=== PATIENT | male | born 1950 | race Caucasian/White ===

== ENCOUNTER 2018-10-16 23:31 | Emergency (ER) | payer MEDICARE, OTHER ==
[2018-10-16] MEDS ORDERED: Sodium Chloride 0.9% 10 ML Syringe FLUSH PRN (23:57)
[2018-10-17] MEDS ORDERED: HYDROmorphone 1 MG/ML Syringe IVPUSH ONE (00:10)
--- NOTE | 2018-10-17 00:47 | EDM.PDOC ---
ED HPI GENERAL MEDICAL PROBLEM - General Chief Complaint: Gastrointestinal Problem Time Seen by Provider: 10/16/18 23:31 Source of Information: Reports: Patient History Limitations: Reports: No Limitations - History of Present Illness INITIAL COMMENTS - FREE TEXT/NARRATIVE: Pt. presents to ER with complaints of a a pop bottle stuck in his rectum. Pt. states that he was unable to remove the bottle and states that it has migrated further up his rectum/sigmoid. Pt. states that he is unable to feel it with his fingers. He states that this has happened once before and he went to [place] where they were able to extract the toy. Onset: Today Onset Date: 10/17/18 Location: Reports: Abdomen Rectal Pain Score (Numeric/FACES): 9 - Related Data Allergies Allergy/AdvReac Type Severity Reaction Status Date / Time acetaminophen Allergy Cannot Verified 10/16/18 23:55 [From Tylenol-Codeine] Remember atorvastatin Allergy Cannot Verified 10/16/18 23:55 Remember bee venom protein (honey bee) Allergy Cannot Verified 10/16/18 23:55 Remember clindamycin Allergy Cannot Verified 10/16/18 23:55 Remember codeine Allergy Cannot Verified 10/16/18 23:55 [From Tylenol-Codeine] Remember egg Allergy Cannot Verified 10/16/18 23:55 Remember Influenza Virus Vaccines Allergy Cannot Verified 10/16/18 23:55 Remember lisinopril Allergy Cannot Verified 10/16/18 23:55 Remember metformin Allergy Cannot Verified 10/16/18 23:55 Remember Penicillins Allergy Cannot Verified 10/16/18 23:55 Remember Sulfa (Sulfonamide Allergy Cannot Verified 10/16/18 23:55 Antibiotics) Remember tetracycline Allergy Cannot Verified 10/16/18 23:55 Remember Home Meds: Home Meds . 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 - Past Surgical History Musculoskeletal Surgical History: Reports: Other (See Below) Other Musculoskeletal Surgeries/Procedures:: left foot surgery Social & Family History - Tobacco Use Smoking Status *Q: Unknown Ever Smoked ED ROS GENERAL - Review of Systems Review Of Systems: See Below Constitutional: Reports: No Symptoms HEENT: Reports: No Symptoms Respiratory: Reports: No Symptoms Cardiovascular: Reports: No Symptoms Endocrine: Reports: No Symptoms GI/Abdominal: Reports: Abdominal Pain, Other (see HPI) : Reports: Incontinence Musculoskeletal: Reports: No Symptoms Skin: Reports: No Symptoms Neurological: Reports: No Symptoms Psychiatric: Reports: Depression Hematologic/Lymphatic: Reports: No Symptoms Immunologic: Reports: No Symptoms ED EXAM, GENERAL - Physical Exam Exam: See Below General Appearance: Alert, WD/WN, No Apparent Distress GI/Abdominal: Normal Bowel Sounds, Soft, No Organomegaly, Tender Rectal (Males) Exam: Decreased Rectal Tone, Other (See HPI) Skin Exam: Warm, Dry, Intact, Normal Color, No Rash ED GENERAL MEDICAL PROCEDURES - Additional/Other Procedure(s) Other (Free Text) Procedure(s): Bottle had migrated farther up the rectum. The bottle was inserted with the upside down with the mouth downward. Attempted to pull bottle down but again it had migrated upward. Attempted to use a leyva catheter to inflate the bowel to help with removal. The patient's rectal tone was very poor and I was unable to achieve decompression. Course - Vital Signs Last Recorded V/S: Last Vital Signs Temp 36.8 C 10/17/18 00:12 Pulse 118 H 10/17/18 00:12 Resp 22 H 10/17/18 00:12 BP 153/68 H 10/17/18 00:12 Pulse Ox 97 10/17/18 00:12 - Orders/Labs/Meds Orders: Active Orders 24 hr Category Date Time Status Abdomen 1V Flat [CR] Stat Exams 10/16/18 23:58 Taken Sodium Chloride 0.9% [Saline Flush] Med 10/16/18 23:57 Active 10 ml FLUSH ASDIRECTED PRN Peripheral IV Insertion Adult [OM.PC] Routine Oth 10/16/18 23:57 Ordered Medication Orders Sodium Chloride (Saline Flush) 10 ml FLUSH ASDIRECTED PRN PRN Reason: Keep Vein Open Meds: Medications Generic Name Dose Route Start Last Admin Trade Name Freq PRN Reason Stop Dose Admin Sodium Chloride 10 ml 10/16/18 23:57 Saline Flush FLUSH ASDIRECTED PRN Keep Vein Open Discontinued Medications Generic Name Dose Route Start Last Admin Trade Name Freq PRN Reason Stop Dose Admin Hydromorphone HCl 0.5 mg 10/17/18 00:10 10/17/18 00:19 Dilaudid IVPUSH 10/17/18 00:11 0.5 mg ONETIME ONE Administration Departure - Departure Time of Disposition: 01:06 Disposition: DC/Tfer to Acute Hospital 02 Clinical Impression: Foreign body anus/rectum - Discharge Information Referrals: PCP,Unobtain [Primary Care Provider] - Forms: ED Department Discharge, Interfacility Transfer EMTALA - Problem List Review Problem List Initiated/Reviewed/Updated: Yes - My Orders Last 24 Hours: My Active Orders 10/16/18 23:57 Sodium Chloride 0.9% [Saline Flush] 10 ml FLUSH ASDIRECTED PRN Peripheral IV Insertion Adult [OM.PC] Routine 10/16/18 23:58 Abdomen 1V Flat [CR] Stat - Assessment/Plan Last 24 Hours: My Active Orders 10/16/18 23:57 Sodium Chloride 0.9% [Saline Flush] 10 ml FLUSH ASDIRECTED PRN Peripheral IV Insertion Adult [OM.PC] Routine 10/16/18 23:58 Abdomen 1V Flat [CR] Stat Plan: Spoke with Dr. Kim who accepts patient in transfer. Will be transported via [facility]. He can have dilaudid for further pain control. All questions were answered.
--- NOTE | 2018-10-17 12:26 | CR ---
[id number] RAD/RAD Abdomen Flat Plate 1V Exam: RAD Abdomen Flat Plate 1V Indication:FOREIGN BODY RECTUM. Comparison: None. Discussion: 16.9 x 8.7 cm foreign body projecting over the pelvis, consistent with history of possible foreign body in rectum. Bowel gas pattern is unobstructed. No radiographically evident pneumoperitoneum. Impression: As above. Diego Matta MD 10/17/18 [id number] Thank you for allowing us to participate in the care of your patient.
== END 2018-10-17 01:10 | disposition short-term general hospital (02) ==
LOC: VM.ED 23:31
DX: T18.5XXA Foreign body in anus and rectum, initial encounter (principal); E11.9 Type 2 diabetes mellitus without complications; Z88.8 Allergy status to other drugs, medicaments and biological substances; Z91.030 Bee allergy status; Z88.1 Allergy status to other antibiotic agents; X58.XXXA Exposure to other specified factors, initial encounter
CPT/HCPCS: 74018; 96374; 99285; J1170

== ENCOUNTER 2019-04-07 07:45 | Day surgery (SDC) | payer MEDICARE, OTHER, BC ==
[~2019-04-07 07:45] MED LIST: Lactated Ringers 1,000 ML IV SCH
[2019-04-07] MEDS ORDERED: Propofol 200 MG/20 ML SDV ONE ×2 (09:20→12:17)
[2019-04-07] MEDS ORDERED: fentaNYL 100 MCG/2 ML SDV ONE (09:20)
--- NOTE | 2019-04-07 12:40 | OR ---
DATE OF SURGERY: 04/07/2019. REFERRING PROVIDER: ALPHONSE Webb PREOPERATIVE DIAGNOSIS: History of left sigmoid colon resection secondary to foreign body. The patient has a left colostomy in place and is planning reversal in late September. Previous surgery was 10/17/2018. The patient's last colonoscopy was noted in 2007. POSTOPERATIVE DIAGNOSES: 1. Impacted rectal stump with firm amorphous material. Some of this was able to be manually disimpacted, but the more proximal material was not. Mild irritation of the rectal stump mucosa was noted. 2. Tortuous redundant colon, especially the transverse colon. I was only able to advance to the hepatic flexure. I did briefly get a view of the right colon and did not see anything obvious, but unable to advance the scope past the hepatic flexure despite scope maneuvering and patient position changes. 3. A 1 cm polyp at 70 cm from the stoma (near hepatic flexure) was removed with 2 passes of hot snare. 4. Mild left-sided diverticulosis. PROCEDURE: Colonoscopy with polypectomy x1 using hot snare (colonoscopy done in 2 parts, 1st the rectal stump, and then through his stoma in the left abdomen). SURGEON: Prabhakar Goldstein M.D. ANESTHESIA: Monitored anesthesia care. BOWEL PREP: Fair. DESCRIPTION OF PROCEDURE: Pasquale is a 68-year-old male who was brought to the endoscopy suite after discussing risks and benefits of the procedure. Informed consent was obtained for conscious sedation and colonoscopy with or without biopsy and/or polypectomy. We also discussed possibility of missed lesions. Pre-procedure exam was unremarkable. IV, oxygen, and monitors were placed. The patient was placed in the left lateral decubitus position. Sedation was administered and a digital rectal exam was performed and was remarkable for firm, impacted, amorphous-type material. Some of this was able to be removed digitally, although there still was more material proximally. I was unable to visualize much with the scope, but there was some mild irritation to the rectal stump mucosa. We then turned the patient onto his back and accessed the remainder of the colon through the left abdominal stoma. Colonoscope was passed into the stoma and advanced to the hepatic flexure. The patient had very tortuous redundant colon, and I was only able to advance the scope to this area. I did briefly, for a moment, see the right colon mucosa without any obvious masses or inflammation, but was unable to advance the scope despite multiple scope maneuvers and patient re-positioning. Abdominal pressure was also unsuccessful. At this point, near the hepatic flexure, there was noted to be a sessile polyp measuring about 1 cm in size. This was removed using 2 passes of hot snare. The colonoscope was slowly withdrawn and the mucosa was closed observed in a direct circumferential manner. The transverse colon was unremarkable. The descending colon was remarkable for some mild diverticulosis. Scope was removed. The patient tolerated the procedure well. The patient was monitored until at baseline status. Discharge instructions were reviewed and the patient was discharged in good condition. COMPLICATIONS: None. TOTAL TIME: 40 minutes. ESTIMATED BLOOD LOSS: Less than 1 mL. RECOMMENDATIONS/FOLLOWUP: We will await results of path report to determine ideal followup interval. Would recommend GI or Surgery to try to visualize the right colon in the near future, possibly intraoperatively. The impacted rectal stump would also require better visualization, possibly after irrigation. I would like to kindly thank Akil Hernandez for this referral. DMB: 04/07/2019 11:38:37 MODL: 04/07/2019 12:31:28 /[id number] ROBYN
== END 2019-04-07 12:25 | disposition home or self-care (01) ==
LOC: VM.SDS 07:45
PROVIDERS: ATTEND Family Medicine
DX: Z01.818 Encounter for other preprocedural examination (principal); D12.4 Benign neoplasm of descending colon; Q43.8 Other specified congenital malformations of intestine; K57.30 Diverticulosis of large intestine without perforation or abscess without bleeding; K62.89 Other specified diseases of anus and rectum; E11.42 Type 2 diabetes mellitus with diabetic polyneuropathy; I10 Essential (primary) hypertension; E78.5 Hyperlipidemia, unspecified; K21.9 Gastro-esophageal reflux disease without esophagitis; F33.42 Major depressive disorder, recurrent, in full remission; G40.909 Epilepsy, unspecified, not intractable, without status epilepticus; F20.9 Schizophrenia, unspecified; J45.909 Unspecified asthma, uncomplicated; Z93.3 Colostomy status; Z87.891 Personal history of nicotine dependence; Z91.012 Allergy to eggs; Z91.030 Bee allergy status; Z88.0 Allergy status to penicillin; Z88.1 Allergy status to other antibiotic agents; Z88.2 Allergy status to sulfonamides; Z88.5 Allergy status to narcotic agent; Z88.6 Allergy status to analgesic agent; Z88.7 Allergy status to serum and vaccine; Z88.8 Allergy status to other drugs, medicaments and biological substances; Z79.4 Long term (current) use of insulin; Z79.899 Other long term (current) drug therapy
CPT/HCPCS: 00811; 44394; 45330; 82962; J2704; J3010; J7120; 88305

== ENCOUNTER 2020-02-28 10:19 | Emergency (ER) | payer OTHER, MEDICARE, BC ==
[2020-02-28] MEDS ORDERED: Sodium Chloride 0.9% 10 ML Syringe FLUSH PRN (11:05)
--- NOTE | 2020-02-28 12:25 | EDM.PDOC ---
ED HPI GENERAL MEDICAL PROBLEM - General Stated Complaint: ER Time Seen by Provider: 02/28/20 10:19 Source of Information: Reports: Patient History Limitations: Reports: No Limitations - History of Present Illness INITIAL COMMENTS - FREE TEXT/NARRATIVE: Pt. presents to ER with numerous complaints. They include intermittent chest pain, lightheadedness, shortness of breath, productive cough, chills and sweats. He states that he has been experiencing the chest pain intermittently for weeks to months. He states that the discomfort does not radiate into his jaw, arms, neck or back. He denies any history of CAD. He states that he has had a stress test, but it has been "years". Pt. states that he is very fatigued. He states that he has to take naps during the day. He has never been worked up for the chest pain. He is insulin dependent type 2 DM. No nausea, vomiting, or diarrhea. Pt. states that he has not been travelling. No ill contacts that he is aware of. Onset Date: 02/28/20 Location: Reports: Chest, Generalized - Related Data Allergies Allergy/AdvReac Type Severity Reaction Status Date / Time acetaminophen Allergy Cannot Verified 02/28/20 13:02 [From Tylenol-Codeine] Remember atorvastatin Allergy Cannot Verified 02/28/20 13:02 Remember bee venom protein (honey bee) Allergy Cannot Verified 02/28/20 13:02 Remember clindamycin Allergy Cannot Verified 02/28/20 13:02 Remember codeine Allergy Cannot Verified 02/28/20 13:02 [From Tylenol-Codeine] Remember lisinopril Allergy Cannot Verified 02/28/20 13:02 Remember metformin Allergy Cannot Verified 02/28/20 13:02 Remember nicotine [From Nicoderm CQ] Allergy Itching Verified 02/28/20 13:02 Penicillins Allergy Cannot Verified 02/28/20 13:02 Remember Sulfa (Sulfonamide Allergy Cannot Verified 02/28/20 13:02 Antibiotics) Remember tetracycline Allergy Cannot Verified 02/28/20 13:02 Remember Home Meds: Home Meds Divalproex Sodium [Depakote ER] 500 mg PO BID 10/17/18 [History] Gabapentin [Neurontin] 800 mg PO BID 10/17/18 [History] Ibuprofen 2 tab PO Q4H PRN 10/17/18 [History] Nitroglycerin [Nitrostat] 0.4 mg SL ASDIRECTED PRN 10/17/18 [History] Omeprazole Magnesium [Prilosec Otc] 40 mg PO DAILY 10/17/18 [History] Simvastatin 40 mg PO BEDTIME 10/17/18 [History] buPROPion [Wellbutrin SR] 300 mg PO DAILY 10/17/18 [History] glipiZIDE [Glucotrol] 10 mg PO BID 10/17/18 [History] raNITIdine HCl [Zantac] 150 mg PO DAILY 10/17/18 [History] Cholecalciferol (Vitamin D3) [Vitamin D3] 1,000 unit PO BID 04/04/19 [History] Desonide [Desowen] 1 applic TP BEDTIME 04/04/19 [History] Docusate Sodium 100 mg PO BID 04/04/19 [History] EPINEPHrine [Auvi-Q] 0.3 mg IJ DAILY PRN 04/04/19 [History] Fluoride (Sodium) [Prevident 5000] 100 ml DT DAILY PRN 04/04/19 [History] Insuln Asp Prot/Insulin Aspart [NovoLOG Mix 70-30] 52 units SQ BID 04/04/19 [History] Melatonin/Pyridoxine HCl (B6) [Melatonin 3 mg Tablet] 1 tab PO BEDTIME PRN 04/04/19 [History] Coburn-3/DHA/Epa/Fish Oil [Coburn 3 500 Softgel] 1,000 mg PO BID 04/04/19 [History] bisacodyL [Dulcolax] 5 mg PO DAILY PRN 04/04/19 [History] carvediloL [Carvedilol] 25 mg PO BID 04/04/19 [History] tiZANidine [Zanaflex] 4 mg PO BID 02/28/20 [History] Past Medical History HEENT History: Reports: Impaired Vision, Other (See Below) Other HEENT History: myopia, presbyopia Respiratory History: Reports: Sleep Apnea, SOB Gastrointestinal History: Reports: GERD, Other (See Below) Other Gastrointestinal History: rectal foreign body Genitourinary History: Reports: Renal Calculus, Other (See Below) Other Genitourinary History: orchitis, epididymitis, retracticle testis Musculoskeletal History: Reports: Back Pain, Chronic, Neck Pain, Chronic Neurological History: Reports: Neuropathy, Diabetic, Seizure Psychiatric History: Reports: Depression, Schizophrenia, Other (See Below) Other Psychiatric History: personal hx of mental disorder, personal hx of tobacco Endocrine/Metabolic History: Reports: Diabetes, Type II, Other (See Below) Other Endocrine/Metabolic History: neuropathy Oncologic (Cancer) History: Reports: Other (See Below) Other Oncologic History: 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, skin of face Dermatologic History: Reports: Seborrheic Dermatitis - Past Surgical History HEENT Surgical History: Reports: Oral Surgery GI Surgical History: Reports: Colonoscopy, Other (See Below) Other GI Surgeries/Procedures: laporotomy rectal exam with foreign body extraction, signoid colon resection Endocrine Surgical History: Reports: None Neurological Surgical History: Reports: None Musculoskeletal Surgical History: Reports: Other (See Below) Other Musculoskeletal Surgeries/Procedures:: left foot surgery ED ROS GENERAL - Review of Systems Review Of Systems: See Below Constitutional: Reports: Chills, Malaise, Fatigue HEENT: Reports: No Symptoms Respiratory: Reports: Shortness of Breath, Cough Cardiovascular: Reports: Chest Pain Endocrine: Reports: No Symptoms GI/Abdominal: Reports: No Symptoms : Reports: No Symptoms Musculoskeletal: Reports: No Symptoms Skin: Reports: No Symptoms Neurological: Reports: No Symptoms Psychiatric: Reports: Depression Hematologic/Lymphatic: Reports: No Symptoms Immunologic: Reports: No Symptoms ED EXAM, GENERAL - Physical Exam Exam: See Below Exam Limited By: No Limitations General Appearance: Alert, WD/WN, No Apparent Distress Nose: Normal Inspection, Normal Mucosa, No Blood Throat/Mouth: Normal Inspection, Normal Lips, Normal Teeth, Normal Gums, Normal Oropharynx, Normal Voice, No Airway Compromise Head: Atraumatic, Normocephalic Neck: Normal Inspection, Supple, Non-Tender, Full Range of Motion Respiratory/Chest: No Respiratory Distress, No Accessory Muscle Use, Decreased Breath Sounds, Wheezing Cardiovascular: Normal Peripheral Pulses, Regular Rate, Rhythm, No Edema, No JVD, No Murmur, No Rub GI/Abdominal: Normal Bowel Sounds, Soft, Non-Tender, No Organomegaly, No Distention, No Mass (Male) Exam: Deferred Rectal (Males) Exam: Deferred Back Exam: Normal Inspection, Full Range of Motion Extremities: Normal Inspection, Normal Range of Motion, Non-Tender, No Pedal Edema, Normal Capillary Refill Neurological: Alert, Oriented, CN II-XII Intact, Normal Cognition, Normal Gait, Normal Reflexes, No Motor/Sensory Deficits Psychiatric: Normal Affect, Normal Mood Skin Exam: Warm, Dry, Intact, Normal Color, No Rash Lymphatic: No Adenopathy EKG INTERPRETATION Rhythm: NSR QRS: RBBB Comparison: No Change Course - Vital Signs Last Recorded V/S: Last Vital Signs Temp 36.6 C 02/28/20 10:20 Pulse 72 02/28/20 12:00 Resp 16 02/28/20 12:00 BP 112/58 L 02/28/20 12:00 Pulse Ox 98 02/28/20 12:00 - Orders/Labs/Meds Labs: Laboratory Tests 02/28/20 02/28/20 02/28/20 Range/Units 11:20 11:43 11:43 WBC 6.7 (4.0-10.0) x10^3/uL RBC 4.52 (4.5-6.0) x10^6/uL Hgb 14.1 (14.0-18.0) g/dL Hct 40.5 (40.0-52.0) % MCV 89.6 (78.0-93.0) fL MCH 31.2 (26.0-32.0) pg MCHC 34.8 (32.0-36.0) g/dL RDW Coeff of Patrick 12.6 (10.0-15.0) % Plt Count 255 D (130-400) x10^3/uL Neut % (Auto) 51.8 (50.0-80.0) % Lymph % (Auto) 36.2 (25.0-50.0) % Story % (Auto) 10.5 (2.0-11.0) % Eos % (Auto) 1.2 (0.0-4.0) % Baso % (Auto) 0.3 (0.2-1.2) % PT 9.9 (9.5-12.3) SEC INR 0.9 L (2.0-3.5) D-Dimer, Quantitative (<=0.58) mg/LFEU Sodium (136-145) mmol/L Potassium (3.5-5.1) mmol/L Chloride (98-107) mmol/L Carbon Dioxide (21-32) mmol/L Anion Gap (10-20) mmol/L BUN (7-18) mg/dL Creatinine (0.70-1.30) mg/dL Est Cr Clr Drug Dosing Estimated GFR (MDRD) Glucose (74-106) mg/dL Lactic Acid (0.4-2.0) mmol/L Calcium (8.5-10.1) mg/dL Corrected Calcium (8.5-10.1) mg/dL Magnesium (1.8-2.4) mg/dL Total Bilirubin (0.2-1.0) mg/dL AST (15-37) U/L ALT (16-63) U/L Alkaline Phosphatase (46-116) U/L Troponin I (<=0.056) ng/mL C-Reactive Protein (<=0.9) mg/dL NT-Pro-B Natriuret Pep (<=125) pg/mL Total Protein (6.4-8.2) g/dL Albumin (3.4-5.0) g/dL Globulin Albumin/Globulin Ratio TSH, Ultra Sensitive (0.358-3.74) uIU/mL SARS-CoV-2 RNA (RT-PCR) Negative (NEGATIVE) 02/28/20 02/28/20 02/28/20 Range/Units 11:43 11:43 11:43 WBC (4.0-10.0) x10^3/uL RBC (4.5-6.0) x10^6/uL Hgb (14.0-18.0) g/dL Hct (40.0-52.0) % MCV (78.0-93.0) fL MCH (26.0-32.0) pg MCHC (32.0-36.0) g/dL RDW Coeff of Patrick (10.0-15.0) % Plt Count (130-400) x10^3/uL Neut % (Auto) (50.0-80.0) % Lymph % (Auto) (25.0-50.0) % Story % (Auto) (2.0-11.0) % Eos % (Auto) (0.0-4.0) % Baso % (Auto) (0.2-1.2) % PT (9.5-12.3) SEC INR (2.0-3.5) D-Dimer, Quantitative 0.50 (<=0.58) mg/LFEU Sodium 141 (136-145) mmol/L Potassium 4.4 (3.5-5.1) mmol/L Chloride 105 (98-107) mmol/L Carbon Dioxide 26 (21-32) mmol/L Anion Gap 14.4 (10-20) mmol/L BUN 17 (7-18) mg/dL Creatinine 1.5 H (0.70-1.30) mg/dL Est Cr Clr Drug Dosing TNP Estimated GFR (MDRD) 46 Glucose 168 H (74-106) mg/dL Lactic Acid 1.4 (0.4-2.0) mmol/L Calcium 8.7 (8.5-10.1) mg/dL Corrected Calcium 9.58 (8.5-10.1) mg/dL Magnesium 1.7 L (1.8-2.4) mg/dL Total Bilirubin 0.1 L (0.2-1.0) mg/dL AST 16 (15-37) U/L ALT 21 (16-63) U/L Alkaline Phosphatase 69 (46-116) U/L Troponin I < 0.017 (<=0.056) ng/mL C-Reactive Protein 0.6 (<=0.9) mg/dL NT-Pro-B Natriuret Pep 44 (<=125) pg/mL Total Protein 6.4 (6.4-8.2) g/dL Albumin 2.9 L (3.4-5.0) g/dL Globulin 3.5 Albumin/Globulin Ratio 0.83 TSH, Ultra Sensitive 1.414 (0.358-3.74) uIU/mL SARS-CoV-2 RNA (RT-PCR) (NEGATIVE) Meds: Medications Discontinued Medications Generic Name Dose Route Start Last Admin Trade Name Freq PRN Reason Stop Dose Admin Iopamidol 100 ml 02/28/20 13:38 02/28/20 14:16 Isovue-300 (61%) IVPUSH 02/28/20 13:39 100 ml ONETIME ONE Administration Sodium Chloride 10 ml 02/28/20 11:05 Saline Flush FLUSH ASDIRECTED PRN Keep Vein Open Departure - Departure Time of Disposition: 12:00 Disposition: Home, Self-Care 01 Clinical Impression: Bronchitis - Discharge Information Instructions: Acute Bronchitis, Adult, [id number], Nonspecific Chest Pain, Adult, [id number] Referrals: PCP,None [Primary Care Provider] - Forms: ED Department Discharge Additional Instructions: Doxycycline 100mg 1 twice daily for 10 days Recheck in clinic in 10-14 days Drink plenty of fluids Return to ER if you are continuing to have chest pain that doesn't go away or if you are severely short of breath. - Problem List Review Problem List Initiated/Reviewed/Updated: Yes - Assessment/Plan Plan: Doxycycline 100mg 1 twice daily for 10 days Recheck in clinic in 10-14 days Drink plenty of fluids Return to ER if you are continuing to have chest pain that doesn't go away or if you are severely short of breath.
[2020-02-28 12:28] LABS: CHLORIDE,CL 105 mmol/L (98-107); SODIUM,NA 141 mmol/L (136-145)
[2020-02-28 12:29] LABS: ANION GAP 14.4 mmol/L (10-20)
--- NOTE | 2020-02-28 12:54 | CR ---
[id number] RAD/RAD Chest PA or AP 1V EXAM: FRONTAL CHEST INDICATION: COUGH. COMPARISON: None. DISCUSSION: 22 mm nodular opacity overlying the right hilum. This may represent a calcified granuloma, but chest CT with contrast is suggested for further evaluation. Underlying chronic obstructive pulmonary disease is questioned. Normal heart size. IMPRESSION: 1. Indeterminate 22 mm nodular opacity overlying the lower aspect of the right hilum. Chest CT with contrast is suggested. Yoseph Ruff MD 02/28/20 [id number] Thank you for allowing us to participate in the care of your patient.
[2020-02-28] MEDS ORDERED: Iopamidol 612 MG/ML 100 ML Bottle IVPUSH ONE (13:38)
--- NOTE | 2020-02-28 15:04 | CT ---
[id number] CT/CT Chest W IV Exam: CT Chest W IV Clinical Data: POSSIBLE RIGHT HILAR MASS COMPARISON: CORRELATION IS MADE WITH TODAY'S CHEST RADIOGRAPH FINDINGS: There is a calcified granuloma in the superior segment of the right lower lobe but there is no right hilar mass or adenopathy There is no infiltrate There is no effusion The great vessels are intact There is no adrenal mass IMPRESSION: NO LUNG MALIGNANCY IDENTIFIED Sedrick Vang MD 02/28/20 [id number] Thank you for allowing us to participate in the care of your patient.
== END 2020-02-28 15:35 | disposition home or self-care (01) ==
LOC: VM.ED 10:19
DX: J40 Bronchitis, not specified as acute or chronic (principal); K21.9 Gastro-esophageal reflux disease without esophagitis; F32.9 Major depressive disorder, single episode, unspecified; E11.40 Type 2 diabetes mellitus with diabetic neuropathy, unspecified; Z88.6 Allergy status to analgesic agent; Z88.8 Allergy status to other drugs, medicaments and biological substances; Z91.030 Bee allergy status; Z88.1 Allergy status to other antibiotic agents; Z88.5 Allergy status to narcotic agent; Z88.0 Allergy status to penicillin; Z88.2 Allergy status to sulfonamides; Z79.899 Other long term (current) drug therapy; Z79.4 Long term (current) use of insulin; Z20.828 Contact with and (suspected) exposure to other viral communicable diseases
CPT/HCPCS: 36415; 71045; 71260; 80053; 83605; 83735; 83880; 84443; 84484; 85025; 85379; 85610; 86140; 87040; 87635; 87804; 93005; 93010; 99284; 99285; Q9967; U0002

== ENCOUNTER 2022-11-27 06:47 | Day surgery (SDC) | payer MEDICARE, BC, OTHER ==
[2022-11-27] MEDS ORDERED: Sodium Chloride 0.9% 10 ML Syringe FLUSH PRN (07:00)
[2022-11-27] MEDS ORDERED: Lactated Ringers 1,000 ML IV SCH (07:00)
[2022-11-27] MEDS ORDERED: fentaNYL 100 MCG/2 ML SDV ONE (08:07)
[2022-11-27] MEDS ORDERED: Propofol 200 MG/20 ML SDV ONE ×2 (08:07→08:36)
== END 2022-11-27 10:55 | disposition home or self-care (01) ==
LOC: VM.SDS 06:47
PROVIDERS: ATTEND Family Medicine
DX: Z12.11 Encounter for screening for malignant neoplasm of colon (principal); D12.3 Benign neoplasm of transverse colon; I25.10 Atherosclerotic heart disease of native coronary artery without angina pectoris; E78.00 Pure hypercholesterolemia, unspecified; G47.33 Obstructive sleep apnea (adult) (pediatric); E11.40 Type 2 diabetes mellitus with diabetic neuropathy, unspecified; F32.9 Major depressive disorder, single episode, unspecified; K21.9 Gastro-esophageal reflux disease without esophagitis; M54.50 Low back pain, unspecified; G89.29 Other chronic pain; E11.22 Type 2 diabetes mellitus with diabetic chronic kidney disease; N18.31 Chronic kidney disease, stage 3a; E66.9 Obesity, unspecified; Z68.33 Body mass index [BMI] 33.0-33.9, adult; Z88.0 Allergy status to penicillin; Z88.2 Allergy status to sulfonamides; Z88.8 Allergy status to other drugs, medicaments and biological substances; Z88.6 Allergy status to analgesic agent; Z88.1 Allergy status to other antibiotic agents; Z79.899 Other long term (current) drug therapy; Z79.4 Long term (current) use of insulin; Z98.890 Other specified postprocedural states; Z87.891 Personal history of nicotine dependence
CPT/HCPCS: 00811; 45380; 45385; 82947; 88305; J2704; J3010; J7120

== ENCOUNTER 2024-11-16 09:07 | Emergency (ER) | payer MEDICARE, BC, OTHER ==
[2024-11-16] MEDS ORDERED: Sodium Chloride 0.9% 10 ML Syringe FLUSH PRN (09:42)
[2024-11-16 09:50] LABS: BASOPHILS PERCENT AUTO 0.2 % (0.2-1.2); EOSINOPHILS ABSOLUTE AUTO 0.1 x10^3/uL (0.0-0.5); EOSINOPHILS PERCENT AUTO 2.1 % (0.0-4.0); HEMATOCRIT 37.3 % (40.0-52.0); HEMOGLOBIN 12.9 g/dL (14.0-18.0); IMMATURE GRAN ABSOLUTE AUTO 0.01 x10^3/uL (0.00-0.07); LYMPHOCYTES ABSOLUTE AUTO 1.3 x10^3/uL (1.0-4.8); LYMPHOCYTES PERCENT AUTO 21.5 % (25.0-50.0); MEAN CORPUSCULAR HEMOGLOBIN 32.2 pg (26.0-32.0); MEAN CORPUSCULAR HGB CONC 34.6 g/dL (32.0-36.0); MONOCYTES ABSOLUTE AUTO 0.7 x10^3/uL (0.0-0.8); MONOCYTES PERCENT AUTO 11.3 % (2.0-11.0); NEUTROPHILS PERCENT AUTO 64.7 % (50.0-80.0); PLATELET COUNT,PLT 164 x10^3/uL (130-400); RED BLOOD CELL COUNT 4.01 x10^6/uL (4.5-6.0); WHITE BLOOD CELL COUNT,WBC 6.2 x10^3/uL (4.0-10.0)
[2024-11-16] MEDS: Ondansetron 4 MG/2 ML SDV IVPUSH ONE (09:55)
[2024-11-16] MEDS: Lactated Ringers 1,000 ML IV ONE (09:55)
[2024-11-16] MEDS: HYDROmorphone 0.5 MG/0.5 ML Syringe IVPUSH ONE (09:56)
[2024-11-16 10:02] LABS: INR 0.9 (0.9-1.1); PTT,PARTIAL THROMBOPLSTIN TIME 26.4 SEC (23.5-33.2)
[2024-11-16 10:05] LABS: LACTIC ACID 1.1 mmol/L (0.4-2.0)
[2024-11-16] MEDS: HYDROmorphone 1 MG/ML Syringe IVPUSH ONE (10:08)
[2024-11-16 10:11] LABS: BLOOD UREA NITROGEN,BUN 18 mg/dL (7-18); CARBON DIOXIDE,CO2 21 mmol/L (21-32); CHLORIDE,CL 106 mmol/L (98-107); CREATININE 1.6 mg/dL (0.70-1.30); GLUCOSE RANDOM 247 mg/dL (70-99); SODIUM,NA 140 mmol/L (136-145)
[2024-11-16 10:12] LABS: A/G RATIO 0.75; ALANINE AMINOTRANSFERASE,ALT 38 U/L (16-63); ALBUMIN 2.7 g/dL (3.4-5.0); ALKALINE PHOSPHATASE 72 U/L (46-116); AMYLASE 42 U/L (25-115); ASPARTATE AMNIOTRANSFERASE,AST 29 U/L (15-37); BILIRUBIN TOTAL 0.7 mg/dL (0.2-1.0); C-REACTIVE PROTEIN 9.62 mg/dL (<=0.50); CALCIUM 9.1 mg/dL (8.5-10.1); ESTIMATED GFR 44 mL/min (>=60); MAGNESIUM 1.7 mg/dL (1.8-2.4); PROTEIN TOTAL,TP 6.3 g/dL (6.4-8.2); TSH ULTRASENSITIVE 4.097 uIU/mL (0.358-3.74)
[2024-11-16] MEDS: Lactated Ringers 1,000 ML IV SCH (11:13)
[2024-11-16] MEDS: Iopamidol 612 MG/ML 100 ML Bottle IVPUSH ONE (11:20)
[2024-11-16 11:27] LABS: APPEARANCE,URINE CLOUDY (CLEAR); BILIRUBIN,URINE NEGATIVE (NEGATIVE); COLOR,URINE YELLOW (YELLOW); GLUCOSE,URINE 100 mg/dL (NEGATIVE); KETONES,URINE NEGATIVE (NEGATIVE); LEUKOCYTE ESTERASE,URINE MODERATE (NEGATIVE); NITRITE,URINE NEGATIVE (NEGATIVE); OCCULT BLOOD,URINE MODERATE (NEGATIVE); PH,URINE 7.5 (5.0-8.0); PROTEIN,URINE NEGATIVE (NEGATIVE); UROBILINOGEN,URINE 0.2 EU/dL (0.2)
[2024-11-16 11:34] LABS: BACTERIA,URINE FEW /HPF (NOT SEEN); SQUAMOUS EPITHELIAL CELLS,UR RARE /HPF (NOT SEEN); WBC,URINE 20-30 /HPF (NOT SEEN)
== END 2024-11-16 12:14 | disposition home or self-care (01) ==
LOC: VM.ED 09:07
DX: K80.20 Calculus of gallbladder without cholecystitis without obstruction (principal); K43.5 Parastomal hernia without obstruction or gangrene; I25.10 Atherosclerotic heart disease of native coronary artery without angina pectoris; E78.00 Pure hypercholesterolemia, unspecified; E11.22 Type 2 diabetes mellitus with diabetic chronic kidney disease; E11.41 Type 2 diabetes mellitus with diabetic mononeuropathy; E66.9 Obesity, unspecified; Z88.6 Allergy status to analgesic agent; Z88.1 Allergy status to other antibiotic agents; Z88.0 Allergy status to penicillin; Z88.2 Allergy status to sulfonamides; Z88.8 Allergy status to other drugs, medicaments and biological substances; Z91.030 Bee allergy status; Z79.4 Long term (current) use of insulin; Z79.899 Other long term (current) drug therapy
CPT/HCPCS: 74177; 80053; 81001; 82150; 83605; 83735; 84443; 85025; 85610; 85730; 86140; 87086; 93005; 96361; 96374; 96375; 99284; J1171; J2405; J7120; Q9967; 36415; 87088; 87186